=== PATIENT | female | born 1985 | race Caucasian/White ===

== ENCOUNTER 2016-11-15 13:26 | Inpatient (IN) | payer MEDICAID ==
[~2016-11-15] VITALS: Ht 157.5 cm; Wt 57.0 kg
[~2016-11-15 13:26] MED LIST: CYCL-319 PO; HYDR-906 PO; IBUP-1542 PO; RANI150T9 PO; SUCR1TAB56 PO
[2016-11-15] MEDS ORDERED: morphine 4 MG/ML VIAL IV STA (13:56)
[2016-11-15] MEDS ORDERED: ONDANSETRON 4 MG INJ IV STA (13:56)
[2016-11-15] MEDS ORDERED: SOD CHLORIDE 0.9% 1,000 ML IV STA (13:56)
[2016-11-15 14:46] LABS: ADD SCAN DIFF NO
[2016-11-15 14:50] LABS: BASOPHILS % 0.3 % (0.0-2.0); EOSINOPHILS # 0.1 10^3/ul (0.0-0.5); EOSINOPHILS % 0.5 % (0.0-7.0); HEMATOCRIT 39.4 % (37.0-47.0); HEMOGLOBIN 13.4 g/dl (12.0-16.0); LYMPHOCYTES # 1.5 10^3/ul (0.8-2.9); LYMPHOCYTES % 9.6 % (15.0-51.0); MEAN CORPUSCULAR HEMOGLOBIN 29.8 pg (29.0-33.0); MEAN CORPUSCULAR VOLUME 87.8 fl (82.0-101.0); MEAN PLATELET VOLUME 10.7 fl (7.4-10.4); MONOCYTE # 1.3 10^3/ul (0.3-0.9); MONOCYTES % 8.2 % (0.0-11.0); NEUTROPHIL # 12.4 10^3/ul (1.6-7.5); NEUTROPHILS % 80.9 % (39.0-77.0); PLATELET COUNT 309 10^3/UL (140-415); RED BLOOD COUNT 4.49 10^6/ul (4.20-5.40); RED CELL DISTRIBUTION WIDTH 12.6 % (11.5-14.5); WHITE BLOOD COUNT 15.3 10^3/ul (4.8-10.8)
[2016-11-15 15:16] LABS: ALBUMIN 4.8 g/dl (3.3-4.9); ALBUMIN/GLOBULIN RATIO 1.37; BILIRUBIN,INDIRECT 0.6 mg/dl (0-1.1); BILIRUBIN,TOTAL 0.6 mg/dl (0.2-1.3); CALCIUM 10.7 mg/dl (8.4-10.2); CREATININE 0.55 mg/dl (0.44-1.00); POTASSIUM 4.1 mmol/L (3.5-5.1); TOTAL PROTEIN 8.3 g/dl (6.1-8.1)
[2016-11-15 15:39] LABS: ADD UMIC YES; UR ASCORBIC ACID NEGATIVE (NEGATIVE); UR BILIRUBIN (Dip) NEGATIVE (NEGATIVE); UR BLOOD (Dip) NEGATIVE (NEGATIVE); UR CLARITY SLIGHTLY CLOUDY (CLEAR); UR COLOR YELLOW (YELLOW); UR GLUCOSE (Dip) NEGATIVE (NEGATIVE); UR KETONES (Dip) NEGATIVE (NEGATIVE); UR LEUKOCYTE ESTERASE (Dip) TRACE Leu/ul (NEGATIVE); UR MUCUS FEW /HPF (NONE SEEN); UR NITRITE (Dip) NEGATIVE (NEGATIVE); UR RBC 1 /HPF (0-5); UR SPECIFIC GRAVITY (Dip) 1.021 (1.003-1.030); UR SQUAMOUS EPITHELIAL CELL FEW /HPF (FEW); UR TOTAL PROTEIN (Dip) NEGATIVE (NEGATIVE); UR UROBILINOGEN (Dip) NEGATIVE (NEGATIVE)
--- NOTE | 2016-11-15 16:31 | RADRPT ---
PROCEDURE: CT Abdomen and Pelvis with contrast. CLINICAL INDICATION: Abdominal pelvic pain. Nausea. History of gastritis. TECHNIQUE: CT scan of the abdomen and pelvis with contrast was performed on a multi-detector high- resolution CT scanner. The patient was scanned following the uncomplicated intravenous administrati on of 100 cc of Omnipaque 300. Coronal and sagittal reformatted images were obtained from the axial source images. Images were reviewed on a high-resolution PACS workstation. The total exam CTDI equa ls 7.30 mGy and the total exam DLP equals 376.14 mGy-cm. One or more of the following dose reduction techniques were used: - Automated exposure control. - Adjustment of the mA and/or kV according to patient size. - Use of iterative reconstruction technique. COMPARISON: Chest x-ray 05/05/2016 FINDINGS: CT abdomen: The lung bases are clear. The heart size is normal, without pericardial thickening or effusion. Th e liver is normal in size and density without focal mass or intrahepatic biliary dilatation. The sp grace is normal in size and homogeneous in density. The stomach is partially collapsed, but is gross ly unremarkable. The pancreas as visualized is normal. The gallbladder and biliary tree are unrema rkable and there is no evidence for biliary dilatation. The adrenal glands are symmetric and normal . The kidneys are symmetrically unremarkable as well. No renal calculus or obstructive uropathy or mass lesion is seen. The aorta is of normal caliber. There is no retroperitoneal lymphadenopathy. The oziel hepatis reg ion is clear. The bowel and mesentery, as visualized, are equally unremarkable. CT pelvis: The small bowel loops situated within the pelvis are remarkable for significant abnormal thickening of the wall of multiple loops of distal small bowel and hyperemia of the terminal ileum is seen as w ell. There is edema of the mesentery supplying these thickening and tenderness small bowel loops. Query Crohn disease. the appendix is visualized and is normal. The pelvic organs are normal. A small benign involuting 2.3 cm selection cyst is seen within the rig ht ovary. The pelvic sidewalls and inguinal regions are clear. The sigmoid colon and rectum are un remarkable. No mass or adenopathy is seen. Minimal free fluid is identified. The bladder is normal. The surrounding osseous structures are unremarkable. No osteolytic or osteoblastic lesion is detect ed. IMPRESSION: 1. Significant abnormal thickening edema of the wall of multiple loops of distal small bowel extend ing to the terminal ileum region, with edema of the adjacent supplying mesentery and minimal free fl uid. Distal inflammatory/infectious enteritis should be considered. Crohn disease is a possibility. Further evaluation is warranted. Call report was made and discussed with Dr. Dubose in the ER at 4:27 p.m. on 11/15/2016. RPTAT: HMJB .Hao Banks MD, MD Date Time Electronically viewed and signed by .Hao Banks MD, on 11/15/2016 16:31 .B/
[2016-11-15] MEDS ORDERED: LEVOFLOXACIN 750MG/D5W (PMX) 150 ML IVPB ONE (17:00)
[2016-11-15] MEDS ORDERED: METHYLPREDNISOLONE 125 MG INJ IV ONE (17:00)
[2016-11-15] MEDS ORDERED: SOD CHLORIDE 0.9% 1,000 ML IV SCH (17:39)
--- NOTE | 2016-11-15 17:39 | ERA ---
ER Documentation Chief Complaint Date/Time DATE: 11/15/16 TIME: 17:36 Chief Complaint Lower abdominal pain onset today HPI Is a 31-year-old female who states she went to a cookout yesterday and had some spicy meat beer she states today she developed some severe 11 out of 10 lower abdominal pain with nausea but no vomiting or diarrhea or fever. She has no history of abdominal pathology in the past., However she does say she has had gastritis off and on. The chest pain shortness of breath. The patient had a bowel movement this morning that was described as soft and mushy. No blood in her stool ROS All systems reviewed and are negative except as per history of present illness. Medications Home Meds Active Scripts Hydrocodone/Acetaminophen ([place] 5-325 Tablet) 1 Each Tablet, 1 TAB PO Q6H Y for SEVERE PAIN LEVEL 7-10, #20 TAB Prov:IGLESIA TRISTAN NP 05/05/16 Cyclobenzaprine Hcl* (Cyclobenzaprine Hcl*) 10 Mg Tablet, 10 MG PO TID, #15 TAB Prov:IGLESIA TRISTAN NP 05/05/16 Ibuprofen* (Motrin*) 600 Mg Tab, 600 MG PO Q6H Y for PAIN AND OR ELEVATED TEMP, #30 TAB Prov:IGLESIA TRISTAN NP 05/05/16 Sucralfate* (Carafate*) 1 Gm Tab, 1 GM PO Q6, #60 TAB Prov:KOBY RILEY 10/29/15 Ranitidine Hcl* (Zantac*) 150 Mg Tablet, 150 MG PO BID Y for EPIGASTRIC PAIN, # 30 TAB Prov:KOBY RILEY 10/29/15 Allergies Allergies: Coded Allergies: No Known Allergy (Unverified , 05/04/16) PMhx/Soc History of Surgery: Yes (csection) Anesthesia Reaction: No Hx Neurological Disorder: No Hx Respiratory Disorders: No Hx Cardiac Disorders: No Hx Psychiatric Problems: No Hx Miscellaneous Medical Probl: Yes (gastritis) Hx Alcohol Use: No Hx Substance Use: No Hx Tobacco Use: No Smoking Status: Never smoker FmHx Family History: No coronary disease Physical Exam Vitals Vital Signs Date Time Temp Pulse Resp B/P Pulse Ox O2 Delivery O2 Flow Rate FiO2 11/15/16 13:27 98.7 78 18 109/66 99 Physical Exam Const: Well-developed, well-nourished Head: Atraumatic, normocephalic Eyes: Normal Conjunctiva, PERRLA, EOMI, normal sclera, no nystagmus ENT: Normal External Ears, Nose and Mouth, moist mucus membranes. Neck: Full range of motion. No meningismus, no lymphadenopathy. Resp: Clear to auscultation bilaterally, no wheezing, rhonchi, rales Cardio: Regular rate and rhythm, no murmurs, S1 S2 present Abd: Soft, diffuse moderate to severe lower abdominal tenderness, non distended. Normal bowel sounds, no guarding or rebound, no pulsitile abdominal masses or bruits Skin: No petechiae or rashes, no ecchymosis , no maculopapular rash Back: No midline or flank tenderness Ext: No cyanosis, or edema, FROM x 4, normal inspection, neurovascularly intact x 4 Neur: Awake and alert, STR 5/5 x 4, sensation intact x 4, no focal findings, cerebellum intact Psych: Normal Mood and Affect Result Diagram: 11/15/16 1410 11/15/16 1410 Results 24 hrs Laboratory Tests Test 11/15/16 14:00 11/15/16 14:10 Urine Color YELLOW Urine Clarity SLIGHTLY CLOUDY Urine pH 5.0 Urine Specific Ney 1.021 Urine Ketones NEGATIVEmg/dL Urine Nitrite NEGATIVEmg/dL Urine Bilirubin NEGATIVEmg/dL Urine Urobilinogen NEGATIVEmg/dL Urine Leukocyte Esterase TRACELeu/ul Urine Microscopic RBC 1/HPF Urine Microscopic WBC 2/HPF Urine Squamous Epithelial Cells FEW/HPF Urine Mucus FEW/HPF Urine Hemoglobin NEGATIVEmg/dL Urine Glucose NEGATIVEmg/dL Urine Total Protein NEGATIVEmg/dl White Blood Count 15.310^3/ul Red Blood Count 4.4910^6/ul Hemoglobin 13.4g/dl Hematocrit 39.4% Mean Corpuscular Volume 87.8fl Mean Corpuscular Hemoglobin 29.8pg Mean Corpuscular Hemoglobin Concent 34.0g/dl Red Cell Distribution Width 12.6% Platelet Count 40608^3/UL Mean Platelet Volume 10.7fl Neutrophils % 80.9% Lymphocytes % 9.6% Monocytes % 8.2% Eosinophils % 0.5% Basophils % 0.3% Nucleated Red Blood Cells % 0.0/100WBC Neutrophils # 12.410^3/ul Lymphocytes # 1.510^3/ul Monocytes # 1.310^3/ul Eosinophils # 0.110^3/ul Basophils # 0.010^3/ul Nucleated Red Blood Cells # 0.010^3/ul Sodium Level 140mmol/L Potassium Level 4.1mmol/L Chloride Level 97mmol/L Carbon Dioxide Level 29mmol/L Anion Gap 18 Blood Urea Nitrogen 9mg/dl Creatinine 0.55mg/dl Glucose Level 92mg/dl Calcium Level 10.7mg/dl Total Bilirubin 0.6mg/dl Direct Bilirubin 0.00mg/dl Indirect Bilirubin 0.6mg/dl Aspartate Amino Transf (AST/SGOT) 27IU/L Alanine Aminotransferase (ALT/SGPT) 23IU/L Alkaline Phosphatase 85IU/L Total Protein 8.3g/dl Albumin 4.8g/dl Globulin 3.50g/dl Albumin/Globulin Ratio 1.37 Lipase 43U/L Current Medications Medications (Trade) Dose Ordered Sig/Greyson Route PRN Reason Start Time Stop Time Status Last Admin Dose Admin Sodium Chloride (NS) 1,000 ml @ 1,000 mls/hr Q1H STAT IV 11/15/16 13:56 11/15/16 14:55 DC 11/15/16 14:24 Morphine Sulfate (morphine) 4 mg ONCE STAT IV 11/15/16 13:56 11/15/16 13:58 DC 11/15/16 14:25 Ondansetron HCl 4 mg 4 mg ONCE STAT IV 11/15/16 13:56 11/15/16 13:58 DC 11/15/16 14:25 Levofloxacin/ Dextrose (Levaquin 750 Mg/ D5W 150 ml (Pmx)) 150 ml @ 100 mls/hr ONCE ONCE IVPB 11/15/16 17:00 11/15/16 18:29 11/15/16 16:51 Methylprednisolone Sodium Succinate (Solu-Medrol) 125 mg ONCE ONCE IV 11/15/16 17:00 11/15/16 17:01 DC 11/15/16 16:50 Procedures/MDM PROCEDURE: CT Abdomen and Pelvis with contrast. CLINICAL INDICATION: Abdominal pelvic pain. Nausea. History of gastritis. TECHNIQUE: CT scan of the abdomen and pelvis with contrast was performed on a multi-detector high-resolution CT scanner. The patient was scanned following the uncomplicated intravenous administration of 100 cc of Omnipaque 300. Coronal and sagittal reformatted images were obtained from the axial source images. Images were reviewed on a high-resolution PACS workstation. The total exam CTDI equals 7.30 mGy and the total exam DLP equals 376.14 mGy-cm. One or more of the following dose reduction techniques were used: - Automated exposure control. - Adjustment of the mA and/or kV according to patient size. - Use of iterative reconstruction technique. COMPARISON: Chest x-ray 05/05/2016 FINDINGS: CT abdomen: The lung bases are clear. The heart size is normal, without pericardial thickening or effusion. The liver is normal in size and density without focal mass or intrahepatic biliary dilatation. The spleen is normal in size and homogeneous in density. The stomach is partially collapsed, but is grossly unremarkable. The pancreas as visualized is normal. The gallbladder and biliary tree are unremarkable and there is no evidence for biliary dilatation. The adrenal glands are symmetric and normal. The kidneys are symmetrically unremarkable as well. No renal calculus or obstructive uropathy or mass lesion is seen. The aorta is of normal caliber. There is no retroperitoneal lymphadenopathy. The oziel hepatis region is clear. The bowel and mesentery, as visualized, are equally unremarkable. CT pelvis: The small bowel loops situated within the pelvis are remarkable for significant abnormal thickening of the wall of multiple loops of distal small bowel and hyperemia of the terminal ileum is seen as well. There is edema of the mesentery supplying these thickening and tenderness small bowel loops. Query Crohn disease. the appendix is visualized and is normal. The pelvic organs are normal. A small benign involuting 2.3 cm selection cyst is seen within the right ovary. The pelvic sidewalls and inguinal regions are clear. The sigmoid colon and rectum are unremarkable. No mass or adenopathy is seen. Minimal free fluid is identified. The bladder is normal. The surrounding osseous structures are unremarkable. No osteolytic or osteoblastic lesion is detected. IMPRESSION: 1. Significant abnormal thickening edema of the wall of multiple loops of distal small bowel extending to the terminal ileum region, with edema of the adjacent supplying mesentery and minimal free fluid. Distal inflammatory/ infectious enteritis should be considered. Crohn disease is a possibility. Further evaluation is warranted. Call report was made and discussed with Dr. Alvarez in the ER at 4:27 p.m. on 01/2017. RPTAT: HMJB .Hao Banks MD, Date Time Electronically viewed and signed by .Hao Banks MD, on 11/15/2016 16:31 .B/ CC: ERNESTO ALVAREZ DO Patient is elevated white blood count. Patient could have Crohn's disease versus severe enteritis. Patient is having no diarrhea or vomiting. Possibilities to be bacterial in origin as had some cooked meat yesterday. However I would expect her to have more GI symptoms in which she is having now We will admit for antibiotic therapy and steroids and pain control Departure Diagnosis: Primary Impression: Enteritis Additional Impression: Leukocytosis Qualified Code: D72.829 - Leukocytosis, unspecified type Condition: Stable ERNESTO ALVAREZ DO Nov 15, 2016 17:39
[2016-11-15] MEDS ORDERED: OMEP10CA4 PO (17:52)
[2016-11-15] MEDS ORDERED: ONDANSETRON 4 MG INJ IV PRN ×2 (18:00→20:30)
[2016-11-15] MEDS ORDERED: ACETAMINOPHEN 325 MG TAB PO PRN (18:00)
[2016-11-15 20:01] VITALS: Ht 157.5 cm; Wt 57.0 kg
[2016-11-15] MEDS ORDERED: D5W-0.45 NACL + KCL 20 MEQ 1,000 ML IV SCH (20:03)
[2016-11-15 20:24] VITALS: BP 104/62; RESP 18
[2016-11-15] MEDS ORDERED: NACL 0.9% 3 ML SYG IV SCH (20:30)
[2016-11-15] MEDS ORDERED: morphine 2 MG INJ IV PRN (20:30)
--- NOTE | 2016-11-15 20:33 | HP ---
Date/Time of Note Date/Time of Note DATE: 11/15/16 TIME: 20:26 Assessment/Plan VTE Prophylaxis VTE Prophylaxis Intervention: ambulation Lines/Catheters IV [facility]ter [facility] (from [facility] Peripheral IV Assessment/Plan Chief Complaint/Hosp Course 1. Abdominal pain secondary to enteritis is noted on CT abdomen: Likely infectious from food poisoning Cipro and Flagyl GI consultation 2. Leukocytosis secondary to enteritis Antibiotics 3. History of gastritis PPI Prophylaxis: Ambulation Problems: HPI/ROS Admit Date/Time Admit Date/Time Nov 15, 2016 at 17:40 Hx of Present Illness This 31-year-old female with a history of gastritis, patient presents with abdominal pain with nausea vomiting diarrhea that started yesterday after eating at a friend's house. Patient denies any such symptoms in the past, she denies history of inflammatory bowel disease. Patient denies any blood in stool or any blood in vomitus. She has no other complaints at this time. CT abdomen the ED showed enteritis. ROS Constitutional: improved, no complaints Eyes: no complaints ENT: no complaints Respiratory: no complaints Cardiovascular: no complaints Gastrointestinal: diarrhea, nausea, vomiting, No blood Genitourinary: no complaints Musculoskeletal: no complaints Skin: no complaints Neurologic: no complaints Endocrine: no complaints Lymphatic: no complaints Psychological: nl mood/affect, no complaints Immunologic: no complaints PMH/Family/Social Past Medical History Gastritis Past Surgical History Family History Significant Family History: no pertinent family hx Social History Alcohol Use: rarely Smoking Status: Never smoker Drug Use: none Exam/Review of Systems Vital Signs Vitals Vital Signs Date Time Temp Pulse Resp B/P Pulse Ox O2 Delivery O2 Flow Rate FiO2 11/15/16 20:24 97.1 66 18 104/62 90 Exam Constitutional: alert, oriented, well developed Psych: nl mood/affect, no complaints Head: atraumatic, normocephalic Eyes: EOMI, PERRL, nl conjunctiva, nl lids, nl sclera ENMT: nl external ears & nose, nl lips & teeth, nl nasal mucosa & septum Neck: non-tender, supple Respiratory: clear to auscultation, normal air movement Cardiovascular: nl pulses, regular rate and rhythm Gastrointestinal: soft, tender (Mid lower quadrant), No distended Musculoskeletal: nl extremities to inspection Extremities: normal pulses Neurological: EDUCATIONAL COORDINATOR II-XII intact, nl mental status, nl speech, nl strength Skin: nl turgor, No rash or lesions Lymph: nl lymph nodes Labs Result Diagram: 11/15/16 1410 11/15/16 1410 Medications Medications Current Medications Sodium Chloride 1,000 ml @ 80 mls/hr [id number] IV ; Start 11/15/16 at 17:39; Stop 11/16/16 at 06:08 Potassium Chloride/Dextrose/ Sod Cl (D5-1/2ns + KCl 20 Meq) 1,000 ml @ 100 mls/ hr Q10H IV ; Start 11/15/16 at 20:03 Ondansetron HCl (Zofran Inj) 4 mg Q6H PRN IV NAUSEA AND/OR VOMITING; Start 11/15 at 20:30 Morphine Sulfate 2 mg 2 mg Q4H PRN IV SEVERE PAIN LEVEL 7-10; Start 11/15/16 at 20:30 Piperacillin Sod/ Tazobactam Sod (Zosyn 3.375gm/ 100 ml (Pmx)) 100 ml @ 200 mls /hr Q6 IVPB ; Start 11/16/16 at 00:00 NURYS CARPENTER Nov 15, 2016 20:33
[2016-11-15] MEDS: metroNIDAZOLE 500 MG/NS (PMX) 100 ML IVPB SCH (21:44)
[2016-11-16] MEDS ORDERED: PIPER-TAZO 3.375 GM IV (PMX) 100 ML IVPB SCH
[2016-11-16 02:31] VITALS: BP 97/53; RESP 21
[2016-11-16] MEDS: metroNIDAZOLE 500 MG/NS (PMX) 100 ML IVPB SCH ×2 (05:24→14:05)
[2016-11-16] MEDS: CIPROFLOXACIN 500 MG TAB PO SCH ×2 (05:25→18:00)
[2016-11-16] MEDS ORDERED: PANTOPRAZOLE (EC) 40 MG TAB PO SCH (06:00)
[2016-11-16 06:24] LABS: ADD SCAN DIFF NO
[2016-11-16 06:41] LABS: BASOPHILS % 0.1 % (0.0-2.0); HEMATOCRIT 37.5 % (37.0-47.0); HEMOGLOBIN 12.4 g/dl (12.0-16.0); LYMPHOCYTES % 7.2 % (15.0-51.0); MEAN CORPUSCULAR HEMOGLOBIN 29.5 pg (29.0-33.0); MEAN CORPUSCULAR HGB CONC 33.1 g/dl (32.0-37.0); MEAN CORPUSCULAR VOLUME 89.3 fl (82.0-101.0); MEAN PLATELET VOLUME 11.2 fl (7.4-10.4); MONOCYTE # 0.1 10^3/ul (0.3-0.9); MONOCYTES % 0.8 % (0.0-11.0); NEUTROPHILS % 91.4 % (39.0-77.0); PLATELET COUNT 299 10^3/UL (140-415); RED CELL DISTRIBUTION WIDTH 12.6 % (11.5-14.5); WHITE BLOOD COUNT 13.2 10^3/ul (4.8-10.8)
[2016-11-16 07:12] LABS: ALBUMIN 4.4 g/dl (3.3-4.9); ALBUMIN/GLOBULIN RATIO 1.41; BILIRUBIN,INDIRECT 0.3 mg/dl (0-1.1); BILIRUBIN,TOTAL 0.3 mg/dl (0.2-1.3); CALCIUM 8.8 mg/dl (8.4-10.2); CHOL/HDL RATIO 2.1 RATIO; CREATININE 0.55 mg/dl (0.44-1.00); MAGNESIUM 1.3 mg/dl (1.7-2.5); PHOSPHORUS 4.5 mg/dl (2.5-4.9); POTASSIUM 3.8 mmol/L (3.5-5.1); TOTAL PROTEIN 7.5 g/dl (6.1-8.1)
[2016-11-16 07:50] VITALS: BP 96/52; RESP 16
[2016-11-16 14:38] VITALS: BP 113/56; RESP 16
--- NOTE | 2016-11-16 17:01 | DS ---
Date/Time of Note Date/Time of Note DATE: 11/16/16 TIME: 16:59 Discharge Summary Admission/Discharge Info Admit Date/Time Nov 15, 2016 at 23:17 Discharge Date/Time Discharge Diagnosis 1. Acute gastroenteritis, improved Patient Condition: Stable Hx of Present Illness This 31-year-old female with a history of gastritis, patient presents with abdominal pain with nausea vomiting diarrhea that started yesterday after eating at a friend's house. Patient denies any such symptoms in the past, she denies history of inflammatory bowel disease. Patient denies any blood in stool or any blood in vomitus. She has no other complaints at this time. CT abdomen the ED showed enteritis. Hospital Course Patient is treated with IVF and antibiotics. Symptoms improved. Patient tolerates diet. Follow up with PCP in 1-2 weeks. Home Meds Reported Medications Omeprazole* (Omeprazole*) Unknown Strength Capsule.dr, 1 CAP PO DAILY, #30 CAP 11/15/16 Discontinued Scripts Hydrocodone/Acetaminophen ([place] 5-325 Tablet) 1 Each Tablet, 1 TAB PO Q6H Y for SEVERE PAIN LEVEL 7-10, #20 TAB Prov:IGLESIA TRISTAN NP 05/05/16 Cyclobenzaprine Hcl* (Cyclobenzaprine Hcl*) 10 Mg Tablet, 10 MG PO TID, #15 TAB Prov:IGLESIA TRISTAN NP 05/05/16 Ibuprofen* (Motrin*) 600 Mg Tab, 600 MG PO Q6H Y for PAIN AND OR ELEVATED TEMP, #30 TAB Prov:IGLESIA TRISTAN NP 05/05/16 Sucralfate* (Carafate*) 1 Gm Tab, 1 GM PO Q6, #60 TAB Prov:KOBY RILEY 10/29/15 Ranitidine Hcl* (Zantac*) 150 Mg Tablet, 150 MG PO BID Y for EPIGASTRIC PAIN, # 30 TAB Prov:KOBY RILEY 10/29/15 Follow-up Plan PCP in one to two weeks Primary Care Provider Care Physician No Primary Pending Labs Laboratory Tests Test 11/16/16 05:10 White Blood Count 13.210^3/ul (4.8-10.8) Red Blood Count 4.2010^6/ul (4.20-5.40) Hemoglobin 12.4g/dl (12.0-16.0) Hematocrit 37.5% (37.0-47.0) Mean Corpuscular Volume 89.3fl (82.0-101.0) Mean Corpuscular Hemoglobin 29.5pg (29.0-33.0) Mean Corpuscular Hemoglobin Concent 33.1g/dl (32.0-37.0) Red Cell Distribution Width 12.6% (11.5-14.5) Platelet Count 42539^3/UL (140-415) Mean Platelet Volume 11.2fl (7.4-10.4) Neutrophils % 91.4% (39.0-77.0) Lymphocytes % 7.2% (15.0-51.0) Monocytes % 0.8% (0.0-11.0) Eosinophils % 0.0% (0.0-7.0) Basophils % 0.1% (0.0-2.0) Nucleated Red Blood Cells % 0.0/100WBC (0.0-0.0) Neutrophils # 12.010^3/ul (1.6-7.5) Lymphocytes # 1.010^3/ul (0.8-2.9) Monocytes # 0.110^3/ul (0.3-0.9) Eosinophils # 0.010^3/ul (0.0-0.5) Basophils # 0.010^3/ul (0.0-0.1) Nucleated Red Blood Cells # 0.010^3/ul (0.0-0.0) Sodium Level 138mmol/L (135-144) Potassium Level 3.8mmol/L (3.5-5.1) Chloride Level 102mmol/L (97-110) Carbon Dioxide Level 24mmol/L (21-31) Anion Gap 16 (8-16) Blood Urea Nitrogen 8mg/dl (7-20) Creatinine 0.55mg/dl (0.44-1.00) Glucose Level 121mg/dl (70-220) Hemoglobin A1c 5.3% (0-5.9) Calcium Level 8.8mg/dl (8.4-10.2) Phosphorus Level 4.5mg/dl (2.5-4.9) Magnesium Level 1.3mg/dl (1.7-2.5) Total Bilirubin 0.3mg/dl (0.2-1.3) Direct Bilirubin 0.00mg/dl (0.00-0.20) Indirect Bilirubin 0.3mg/dl (0-1.1) Aspartate Amino Transf (AST/SGOT) 23IU/L (15-46) Alanine Aminotransferase (ALT/SGPT) 22IU/L (13-69) Alkaline Phosphatase 73IU/L (42-121) Total Protein 7.5g/dl (6.1-8.1) Albumin 4.4g/dl (3.3-4.9) Globulin 3.10g/dl (1.3-3.2) Albumin/Globulin Ratio 1.41 Triglycerides Level 45mg/dl (0-149) Cholesterol Level 129mg/dl (100-200) LDL Cholesterol, Calculated 59mg/dl HDL Cholesterol 61mg/dl (34-82) Cholesterol/HDL Ratio 2.1RAGUILLERMINA FENG MD Nov 16, 2016 17:01
== END 2016-11-16 18:51 | disposition home or self-care (01) | DRG 392 ==
LOC: FTE 13:26 → PP2 17:40 → OBSVTOIN 23:17
PROVIDERS: ADMIT Internal Medicine; ATTEND Internal Medicine
DX: K52.9 Noninfective gastroenteritis and colitis, unspecified (principal)
CPT/HCPCS: 36415; 74177; 80053; 80061; 81001; 83036; 83690; 83735; 84100; 85025; 96361; 96374; 96375; G0378; J1956; J2270; J2405; J2930; J7030

== ENCOUNTER 2017-02-18 21:11 | Emergency (ER) | payer MEDICAID ==
[~2017-02-18] VITALS: Ht 160 cm; Wt 59.0 kg
[~2017-02-18 21:11] MED LIST changes: -CYCL-319 PO; -HYDR-906 PO; -IBUP-1542 PO; +OMEP10CA4 PO; -RANI150T9 PO; -SUCR1TAB56 PO
[2017-02-18 21:20] VITALS: Ht 160 cm; Wt 59.0 kg
--- NOTE | 2017-02-18 23:45 | ERD ---
ER Documentation Chief Complaint Date/Time DATE: 02/18/17 TIME: 23:43 Chief Complaint Pt reports when opening a door her hands became numb HPI 31-year-old female patient with no significant past medical history presents to the ED complaining of her bilateral hands having numbness and tingling and stiffness. Patient states that she was angry during an argument and stormed out of her house and immediately felt like she had an increase in heart rate. Reports that she feels safe at home. Denies any injuries. Denies any suicidal or homicidal since. Denies any fever, chills, chest pain, shortness of breath, wheezing, abdominal pain, nausea, vomiting. Denies any trauma or injuries. ROS All systems reviewed and are negative except as per history of present illness. Medications Home Meds Reported Medications Omeprazole* (Omeprazole*) Unknown Strength Capsule., 1 CAP PO DAILY, #30 CAP 11/15/16 Allergies Allergies: Coded Allergies: No Known Allergy (Unverified , 11/15/16) PMhx/Soc History of Surgery: Yes ( and ovarian cyst removed,5yrs ago) Anesthesia Reaction: No Hx Neurological Disorder: No Hx Respiratory Disorders: No Hx Cardiac Disorders: No Hx Psychiatric Problems: No Hx Miscellaneous Medical Probl: No Hx Alcohol Use: Yes (occasional) Hx Substance Use: No Hx Tobacco Use: No Smoking Status: Never smoker Physical Exam Vitals Vital Signs Date Time Temp Pulse Resp B/P Pulse Ox O2 Delivery O2 Flow Rate FiO2 02/18/17 21:20 98.3 91 16 119/72 98 Physical Exam Const: [id number]-[id number], well-nourished. In no acute distress. Head: Atraumatic, normocephalic Eyes: Normal Conjunctiva without injection. No purulent discharge. PERRL. EOMI ENT: Normal external ear. Ear canal without erythema. Tympanic membrane pearly bender without effusion or bulging. Nasal canal clear with normal turbinates. Moist oropharynx without tonsillar exudates. Non-erythematous pharynx. Uvula midline. No drooling. No trismus. Neck: Full range of motion. No meningismus. No cervical lymphadenopathy. Resp: Clear to auscultation bilaterally. No wheezing, rhonchi, rales, or crackles. No accessory muscle use. No retractions. Cardio: Regular rate and rhythm. No murmurs, rubs or gallops. Abd: Soft, non tender, non distended. Normal bowel sounds. No palpable masses. No rebound tenderness. No guarding. Skin: No petechiae or rashes. No ecchymosis. No lacerations or abrasions. Back: No midline tenderness. No CVA tenderness. Ext: No cyanosis, or edema. Neur: Awake and alert. Psych: Normal Mood and Affect Results 24 hrs Current Medications Medications (Trade) Dose Ordered Sig/Greyson Route PRN Reason Start Time Stop Time Status Last Admin Dose Admin Lorazepam (Ativan) 1 mg ONCE ONCE PO 02/19/17 00:00 02/19/17 00:01 DC 02/18/17 23:40 Procedures/MDM 31-year-old female patient with no significant past medical history presents to the ED complaining of bilateral hand paresthesias and feeling like she has an increased heart rate. Patient is afebrile and nontoxic-appearing. Patient likely has an anxiety reaction from getting into an argument ands stormed out of her house. Patient given Ativan here in the ED with improvement of her symptoms. Negative urine . Stress relief resources have been given to patient. Low suspicion for acute myocardial infarction, pneumothorax, pneumonia, cardiac tamponade, pulmonary embolism, pleural effusion, AAA, aortic dissection, Boerhaave's syndrome, cardiac dysrhythmias,meningitis, intracranial bleed, seizure, stroke, TIA or other emergent conditions. Follow up with primary care physician in 1-2 days. Instructed patient to return to the ED sooner for any worsening symptoms. Patient's questions were answered. Patient understood and agreed with discharge plan. Patient discharged stable. Departure Diagnosis: Primary Impression: Paresthesia of both hands Condition: Stable Patient Instructions: Stress Relief: Relaxation, Stress Relief: A Positive Lifestyle, Stress Relief: Changing Your Response, Paraesthesias Ref[facility]: [facility] Usted se garsia hecho un examen mdico de control que le indica que no est en sadaf condicin que requiera tratamiento urgente en el Departamento de Emergencia. Un estudio ms profundo y el tratamiento de ren condicin pueden esperar sin ningn riesgo hasta que usted sea atendida/o en el consultorio de ren mdico o sadaf cl juliann. Es responsabilidad suya arreglar sadaf desmond para el seguimiento del saad. MANEJO DE CONDICIONES NO URGENTES EN EL FUTURO 1) Si usted tiene un mdico de atencin primaria: Usted debera llamar a ren mdico de atencin primaria antes de venir al departamento de emergencia. Despus de las horas de consultorio, ren doctor o ren asociado/a est disponible por telfono. El mdico o enfermero de kenna en el servicio telefnico puede asesorarle por gabriel medio para atender el problema, o saad contrario se puede programar sadaf desmond. 2) Si usted no tiene un mdico de atencin primaria: Llame al mdico o clnica de referencia que aparece abajo vic las horas de consultorio para hacer sadaf desmond para que le vean. CLINICAS: [facility] [phone] [address] [facility] [phone] [address] [facility]. [facility] [phone] [address] [facility] [place]. [facility] [phone] [address] [facility] [place] [id number] [phone] [facility] [phone] [facility] () Usted se garsia hecho un examen mdico de control que le indica que no est en sadaf condicin que requiera tratamiento urgente en el Departamento de Emergencia. Un estudio ms profundo y el tratamiento de ren condicin pueden esperar sin ningn riesgo hasta que usted sea atendida/o en el consultorio de ren mdico o sadaf cl juliann. Es responsabilidad suya arreglar sadaf desmond para el seguimiento del saad. MANEJO DE CONDICIONES NO URGENTES EN EL FUTURO 1) Si usted tiene un mdico de atencin primaria: Usted debera llamar a ren mdico de atencin primaria antes de venir al departamento de emergencia. Despus de las horas de consultorio, ren doctor o ren asociado/a est disponible por telfono. El mdico o enfermero de kenna en el servicio telefnico puede asesorarle por gabriel medio para atender el problema, o saad contrario se puede programar sadaf desmond. 2) Si usted no tiene un mdico de atencin primaria: Llame al mdico o condado institucions de referencia que aparece abajo vic las horas de consultorio para hacer sadaf desmond para que le vean. SI USTED NO PUEDE PAGAR PARA JORDAN UN MEDICO puede ir a: [facility] [address] [place] [address] [facility] [address] [place] [address] [facility] [address] [place] [address] PARA [facility] [address] [place], [place] [id number] [facility] URGENT [facility]/SPECIALTIES Additional Instructions: Llame al doctor MAANA y ave sadaf DESMOND PARA DENTRO DE 2-3 BRAN.Dgale a la secretaria que nosotros le instruimos hacer esta desmond.Avise o llame si ren condicin se empeora antes de la desmond. Regresa aqui si peor o no mejor. SELENE BORREGO PA-C Feb 18, 2017 23:45
[2017-02-19] MEDS ORDERED: LORAZEPAM 1 MG TAB PO ONE
== END 2017-02-19 00:02 | disposition home or self-care (01) ==
LOC: FTE 21:11
DX: R20.2 Paresthesia of skin (principal)
CPT/HCPCS: Z7502; Z7610; 99283